=== PATIENT | female | born 1995 ===

== ENCOUNTER 2020-11-29 18:56 | Emergency (ER) | payer BC, SELFPAY ==
[2020-11-29 19:04] VITALS: BP 134/90; PULSE 68; RESP 16; TEMP 36.9; O2SAT 99; BMI 26.4
--- NOTE | 2020-11-29 20:04 | ED_ITS ---
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 She did eat a pear from the side of the road she started with a rash on her right arm and then she felt some swelling in her throat. She took 2 Benadryl and symptoms have completely resolved. Related Data Previous Rx's Medication Instructions Recorded epinephrine 0.3 mg/0.3 mL 0.3 mg IM Q5-15M PRN #2 ea 11/29/20 injection, auto-injector Review of Systems Review of Systems Narrative: GENERAL: Denies chills,fever HEENT: Denies throat pain RESPIRATORY: Denies dyspnea, cough, wheezing CARDIOVASCULAR: Denies chest pain, palpitations GASTROINTESTINAL: Denies nausea, vomiting MUSCULOSKELETAL: Denies extremity pain, injury SKIN: No rash, no laceration, no pruritus NEUROLOGIC: Denies weakness, dizziness, headache, numbness 8 point review of systems is negative except for those stated above and HPI Patient History alcohol intake frequency: holidays/special occasions only Substance Use Type: does not use Exam Initial Vital Signs Initial Vital Signs: Vital Signs Temperature 98.4 F 11/29/20 19:04 Pulse Rate 68 11/29/20 19:04 Respiratory Rate 16 11/29/20 19:04 Blood Pressure 134/90 11/29/20 19:04 Pulse Oximetry 99 11/29/20 19:04 GENERAL: Well-appearing, well-nourished and in no acute distress. HENT: No mouth CARDIOVASCULAR: peripheral pulses in tact, cap refill <2 sec RESPIRATORY: No respiratory distress, speaks in full sentences without difficulty EXTREMITIES: Normal range of motion, no clubbing or edema. Neurovascularly intact NEUROLOGICAL: Cranial nerves II through XII grossly intact. Normal gait and speech. SKIN: Warm, dry, no petechiae, no rashes or lesions. No hives no urticaria Course Vital Signs Vital signs: Vital Signs - 8 hr 11/29/20 19:04 Temperature 98.4 F Pulse Rate 68 Respiratory Rate 16 Blood Pressure 134/90 Pulse Oximetry 99 MDM - Allergic Reaction MDM Narrative Medical decision making narrative: Patient has no signs or symptoms of anaphylax is. But I have given her refills on epinephrine injections. Discharge Plan Departure Patient Disposition: Home Clinical Impression: Allergic reaction Instructions: Anaphylaxis Activity Restrictions/Additional Instructions: *You have been diagnosed with allergic reaction *What to do: At this time I am happy to say that her symptoms resolved after just Benadryl. Continue to monitor for worsening symptoms. At this time I do not think any further treatment is needed. *Continue to take medications as directed EpiPen take as directed as needed and Renee with you at all times *Follow up with your primary care provider in 2-3 days *Return to ER if you should have increased difficulty breathing, lip swelling, tongue any new, worsening or concerning symptoms Prescriptions: New epinephrine 0.3 mg/0.3 mL auto-injector 0.3 mg IM Q5-15M PRN (Reason: anaphylaxis) Qty: 2 RF: 0
== END 2020-11-29 20:19 | disposition home or self-care (01) ==
PROVIDERS: Emergency Provider Emergency Medicine
DX: T78.40XA Allergy, unspecified, initial encounter (principal); R21 Rash and other nonspecific skin eruption; R22.1 Localized swelling, mass and lump, neck
CPT/HCPCS: 99281